=== PATIENT | female | born 1995 | race Caucasian/White ===

== ENCOUNTER 2017-04-13 18:25 | Inpatient (IN) | payer MEDICAID ==
[~2017-04-13] VITALS: Ht 152.4 cm; Wt 55.1 kg
[2017-04-13] MEDS ORDERED: ACETAMINOPHEN 500 MG TAB PO STA (19:37)
[2017-04-13] MEDS ORDERED: morphine 4 MG/ML VIAL IV STA (19:37)
[2017-04-13] MEDS ORDERED: SOD CHLORIDE 0.9% 1,000 ML IV STA (19:37)
[2017-04-13] MEDS ORDERED: ONDANSETRON 4 MG INJ IV STA (19:48)
[2017-04-13 20:13] LABS: URINE BLOOD (Dip) POC 2+ (NEGATIVE)
[2017-04-13 20:20] LABS: BASOPHILS % 0.2 % (0.0-2.0); EOSINOPHILS % 0.1 % (0.0-7.0); HEMATOCRIT 37.9 % (37.0-47.0); HEMOGLOBIN 13.4 g/dl (12.0-16.0); LYMPHOCYTES # 0.8 10^3/ul (0.8-2.9); LYMPHOCYTES % 4.8 % (15.0-51.0); MEAN CORPUSCULAR HEMOGLOBIN 30.6 pg (29.0-33.0); MEAN CORPUSCULAR HGB CONC 35.4 g/dl (32.0-37.0); MEAN CORPUSCULAR VOLUME 86.5 fl (82.0-101.0); MEAN PLATELET VOLUME 9.2 fl (7.4-10.4); MONOCYTE # 1.2 10^3/ul (0.3-0.9); MONOCYTES % 6.9 % (0.0-11.0); NEUTROPHIL # 14.6 10^3/ul (1.6-7.5); NEUTROPHILS % 87.6 % (39.0-77.0); PLATELET COUNT 276 10^3/UL (140-415); RED BLOOD COUNT 4.38 10^6/ul (4.20-5.40); RED CELL DISTRIBUTION WIDTH 11.8 % (11.5-14.5); WHITE BLOOD COUNT 16.7 10^3/ul (4.8-10.8)
[2017-04-13 20:39] LABS: INR 0.97
[2017-04-13 20:40] LABS: PARTIAL THROMBOPLASTIN TIME 28.1 Sec (25.0-35.0)
[2017-04-13 20:44] LABS: ANION GAP 16 (8-16); BLOOD UREA NITROGEN 15 mg/dl (7-20); CALCIUM 9.5 mg/dl (8.4-10.2); CARBON DIOXIDE 25 mmol/L (21-31); CHLORIDE 101 mmol/L (97-110); CREATININE 0.66 mg/dl (0.44-1.00); GLUCOSE 118 mg/dl (70-220); POTASSIUM 3.2 mmol/L (3.5-5.1); SODIUM 139 mmol/L (135-144)
--- NOTE | 2017-04-13 20:56 | RADRPT ---
PROCEDURE: Noncontrast CT Head. CLINICAL INDICATION: Headache TECHNIQUE: Noncontrast CT of the head was obtained. The administered radiation dose was CTDI vol = 45.01 mGy, DLP = 720.23 mGy-cm. One or more of the following dose reduction techniques were used: Au tomated exposure control, Adjustment of the mA and/or kV according to patient size, or Use of iterat dilan reconstruction technique. COMPARISON: There are no similar studies submitted for comparison. FINDINGS: There is no acute intracranial hemorrhage, midline shift, or mass effect. The cerebral altamirano-white ma tter differentiation appears preserved. No extra-axial collection is seen. The cerebral sulci and ve ntricles are within normal limits in size and configuration for patient's age. The cerebral attenuat ion is within normal limits. The basal cisterns are preserved. The posterior fossa structures are gr ossly unremarkable, although suboptimally evaluated with CT secondary to beam-hardening artifact. Th e partially imaged orbits are grossly unremarkable. Polypoid mucosal thickening or retention cyst is partially imaged within the left maxillary sinus. The remainder of the visualized paranasal sinuses and mastoid air cells are clear. No acute calvarial fracture is identified. IMPRESSION: 1. No evidence of an acute intracranial process. Unremarkable noncontrast CT appearance of the brain . 2. Polypoid mucosal thickening or retention cyst, partially imaged within the left maxillary sinus. RPTAT: HRC Physician Anuradha Date Time Electronically viewed and signed by Physician Anuradha on 04/13/2017 20:56 RC/
[2017-04-13 20:59] LABS: TROPONIN-I < 0.012 ng/ml (0.00-0.12)
[2017-04-13 21:01] LABS: ADD UMIC YES; UR ASCORBIC ACID NEGATIVE (NEGATIVE); UR BACTERIA FEW /HPF (NONE SEEN); UR BILIRUBIN (Dip) NEGATIVE (NEGATIVE); UR BLOOD (Dip) 2+ mg/dL (NEGATIVE); UR CLARITY CLEAR (CLEAR); UR COLOR YELLOW (YELLOW); UR GLUCOSE (Dip) NEGATIVE (NEGATIVE); UR KETONES (Dip) NEGATIVE (NEGATIVE); UR LEUKOCYTE ESTERASE (Dip) NEGATIVE Leu/ul (NEGATIVE); UR NITRITE (Dip) NEGATIVE (NEGATIVE); UR RBC 2 /HPF (0-5); UR SPECIFIC GRAVITY (Dip) 1.015 (1.003-1.030); UR SQUAMOUS EPITHELIAL CELL FEW /HPF (FEW); UR TOTAL PROTEIN (Dip) NEGATIVE (NEGATIVE); UR UROBILINOGEN (Dip) NEGATIVE (NEGATIVE)
[2017-04-13] MEDS ORDERED: POTASSIUM CHLORIDE (SR) 20 MEQ TAB PO STA (23:23)
[2017-04-13] MEDS ORDERED: SOD CHLORIDE 0.9% 1,000 ML IV ONE (23:30)
--- NOTE | 2017-04-13 23:57 | RADRPT ---
PROCEDURE: XR Chest. CLINICAL INDICATION: Fever of unknown origin. TECHNIQUE: AP view of the chest was obtained. COMPARISON: None available FINDINGS: The cardiomediastinal silhouette is within normal limits. The lungs are clear. No signs of pleural f luid or pneumothorax are seen. The osseous structures and soft tissues are unremarkable. IMPRESSION: 1. No evidence for active cardiopulmonary disease. RPTAT: HGAS .Laz Rogers MD, MD Date Time Electronically viewed and signed by .Laz Rogers MD, MD on 04/13/2017 23:56 .S/
[2017-04-14] VITALS (8 sets, daily range): BP systolic 96–128; BP diastolic 55–78; PULSE 98–123; RESP 16–19; TEMP 103.3; Ht 152.4 cm; Wt 55.1 kg
[2017-04-14 01:35] LABS: GLUCOSE,CSF 72 mg/dl (50-80)
[2017-04-14 01:51] LABS: CSF COLOR COLORLESS; CSF VOLUME 3.4 ml; CSF#TUBE COUNT TUBE#4; CSF#TUBES REC'D 4
[2017-04-14] MEDS ORDERED: CEFTRIAXONE 2 GM/50 ML (PMX) 50 ML IVPB ONE (02:30)
--- NOTE | 2017-04-14 03:44 | ERD ---
ER Documentation Chief Complaint Chief Complaint headache x 1 day HPI The patient is a 21-year-old female, presenting to the ER because of fever, headache and neck pain for 1 day. She denies syncope, near syncope, nasal congestion, nasal discharge, sore throat, cough, neck pain, chest pain or abdominal pain, vomiting, dysuria, diarrhea. She does not smoke or drink Past medical history/surgical history: None ROS All systems reviewed and are negative except as per history of present illness. Medications Home Meds No Active Prescriptions or Reported Meds Allergies Allergies: Coded Allergies: No Known Allergy (Unverified , 12/18/15) PMhx/Soc History of Surgery: Yes (APPENDECTOMY) Anesthesia Reaction: No Hx Neurological Disorder: No Hx Respiratory Disorders: No Hx Cardiac Disorders: No Hx Psychiatric Problems: No Hx Miscellaneous Medical Probl: No Hx Alcohol Use: Yes (2 drinks a week.) Hx Substance Use: No Hx Tobacco Use: No Smoking Status: Never smoker Physical Exam Vitals Vital Signs Date Time Temp Pulse Resp B/P Pulse Ox O2 Delivery O2 Flow Rate FiO2 04/13/17 23:24 98.6 76 17 94/53 98 Room Air 04/13/17 18:29 102.9 133 20 113/69 100 Physical Exam Const: No acute distress. Dehydrated Head: Atraumatic. Eyes: Normal Conjunctiva. ENT: Normal External Ears, Nose and Mouth. Neck: Full range of motion. No meningismus. Resp: Clear to auscultation bilaterally. Cardio: Regular rate and rhythm. Abd: Soft, non distended, normal bowel sounds, non tender. Skin: No petechiae or rashes. Back: No midline or flank tenderness. Ext: No cyanosis, or edema. Neur: Awake and alert. No focal deficit Psych: Normal Mood and Affect. Result Diagram: 04/13/17195404/13/171954 Results 24 hrs Laboratory Tests Test 04/13/17 19:55 04/13/17 20:05 04/13/17 20:13 04/13/17 22:01 White Blood Count 16.710^3/ul Red Blood Count 4.3810^6/ul Hemoglobin 13.4g/dl Hematocrit 37.9% Mean Corpuscular Volume 86.5fl Mean Corpuscular Hemoglobin 30.6pg Mean Corpuscular Hemoglobin Concent 35.4g/dl Red Cell Distribution Width 11.8% Platelet Count 27857^3/UL Mean Platelet Volume 9.2fl Neutrophils % 87.6% Lymphocytes % 4.8% Monocytes % 6.9% Eosinophils % 0.1% Basophils % 0.2% Nucleated Red Blood Cells % 0.0/100WBC Neutrophils # 14.610^3/ul Lymphocytes # 0.810^3/ul Monocytes # 1.210^3/ul Eosinophils # 0.010^3/ul Basophils # 0.010^3/ul Nucleated Red Blood Cells # 0.010^3/ul Prothrombin Time 13.0Sec Prothrombin Time Ratio 1.0 INR International Normalized Ratio 0.97 Activated Partial Thromboplast Time 28.1Sec Sodium Level 139mmol/L Potassium Level 3.2mmol/L Chloride Level 101mmol/L Carbon Dioxide Level 25mmol/L Anion Gap 16 Blood Urea Nitrogen 15mg/dl Creatinine 0.66mg/dl Glucose Level 118mg/dl Lactic Acid Level 1.4mmol/L 1.2mmol/L Calcium Level 9.5mg/dl Troponin I < 0.012ng/ml Serum HCG, Qualitative NEGATIVE Urine Color YELLOW Urine Clarity CLEAR Urine pH 6.0 Urine Specific [place] 1.015 Urine Ketones NEGATIVEmg/dL Urine Nitrite NEGATIVEmg/dL Urine Bilirubin NEGATIVEmg/dL Urine Urobilinogen NEGATIVEmg/dL Urine Leukocyte Esterase NEGATIVELeu/ul Urine Microscopic RBC 2/HPF Urine Microscopic WBC 4/HPF Urine Squamous Epithelial Cells FEW/HPF Urine Bacteria FEW/HPF Urine Hemoglobin 2+mg/dL Urine Glucose NEGATIVEmg/dL Urine Total Protein NEGATIVEmg/dl Bedside Urine pH (LAB) 6.0 Bedside Urine Protein (LAB) Negative Bedside Urine Glucose (UA) Negative Bedside Urine Ketones (LAB) Negative Bedside Urine Blood 2+ Bedside Urine Nitrite (LAB) Negative Bedside Urine Leukocyte Esterase (L Negative Test 04/14/17 00:04 04/14/17 00:50 Lactic Acid Level 1.5mmol/L CSF Tubes Submitted 4 CSF Volume 3.4ml CSF Appearance CLEAR CSF Color COLORLESS CSF WBC 6/cmm CSF RBC 0/uL CSF Cell Count Tube # TUBE#4 CSF Mononuclear Cells % (Auto) 0.0% CSF Polynuclear WBCs (%) 0.0% CSF Glucose 72mg/dl CSF Total Protein 25mg/dl Current Medications Medications (Trade) Dose Ordered Sig/Josef Route PRN Reason Start Time Stop Time Status Last Admin Dose Admin Sodium Chloride (NS) 1,000 ml @ 1,000 mls/hr Q1H STAT IV 04/13/17 19:37 04/13/17 20:36 DC 04/13/17 20:21 Acetaminophen (Tylenol Tab) 1,000 mg ONCE STAT PO 04/13/17 19:37 04/13/17 19:45 DC 04/13/17 20:19 Morphine Sulfate (morphine) 4 mg ONCE STAT IV 04/13/17 19:37 04/13/17 19:45 DC 04/13/17 20:20 Ondansetron HCl 4 mg 4 mg ONCE STAT IV 04/13/17 19:48 04/13/17 19:49 DC 04/13/17 20:19 Sodium Chloride (NS) 1,000 ml @ 1,000 mls/hr Q1H ONCE IV 04/13/17 23:30 04/14/17 00:29 DC 04/13/17 23:32 Potassium Chloride 40 meq 40 meq ONCE STAT PO 04/13/17 23:23 04/13/17 23:26 DC 04/13/17 23:33 Ceftriaxone Sodium (Rocephin) 50 ml @ 100 mls/hr ONCE ONCE IVPB 04/14/17 02:30 04/14/17 02:59 DC Procedures/[place] [address] Radiology Main Line: [phone] DIAGNOSTIC IMAGING REPORT Patient: BLANCO REYNOSO : 1995 Age: 21 Sex: F MR #: [id number] DOS: 04/13/171936 Ordering MD: LÓPEZ TRAYLOR NP Location: [facility] Room/Bed: PROCEDURE: Noncontrast CT Head. CLINICAL INDICATION: Headache TECHNIQUE: Noncontrast CT of the head was obtained. The administered radiation dose was CTDI vol = 45.01 mGy, DLP = 720.23 mGy-cm. One or more of the following dose reduction techniques were used: Automated exposure control, Adjustment of the mA and/or kV according to patient size, or Use of iterative reconstruction technique. COMPARISON: There are no similar studies submitted for comparison. FINDINGS: There is no acute intracranial hemorrhage, midline shift, or mass effect. The cerebral altamirano-white matter differentiation appears preserved. No extra-axial collection is seen. The cerebral sulci and ventricles are within normal limits in size and configuration for patient's age. The cerebral attenuation is within normal limits. The basal cisterns are preserved. The posterior fossa structures are grossly unremarkable, although suboptimally evaluated with CT secondary to beam-hardening artifact. The partially imaged orbits are grossly unremarkable. Polypoid mucosal thickening or retention cyst is partially imaged within the left maxillary sinus. The remainder of the visualized paranasal sinuses and mastoid air cells are clear. No acute calvarial fracture is identified. IMPRESSION: 1. No evidence of an acute intracranial process. Unremarkable noncontrast CT appearance of the brain. 2. Polypoid mucosal thickening or retention cyst, partially imaged within the left maxillary sinus. RPTAT: HRC Physician Anuradha Date Time Electronically viewed and signed by Miles Feliciano Physician on 04/13/2017 20: 56 RC/ CC: LÓPEZ ROBERT NP [place] [address] Radiology Main Line: [phone] DIAGNOSTIC IMAGING REPORT Patient: BLANCO REYNOSO : 1995 Age: 21 Sex: F MR #: [id number] DOS: 04/13/17 2323 Ordering MD: LÓPEZ TRAYLOR NP Location: E/R Room/Bed: PROCEDURE: XR Chest. CLINICAL INDICATION: Fever of unknown origin. TECHNIQUE: AP view of the chest was obtained. COMPARISON: None available FINDINGS: The cardiomediastinal silhouette is within normal limits. The lungs are clear. No signs of pleural fluid or pneumothorax are seen. The osseous structures and soft tissues are unremarkable. IMPRESSION: 1. No evidence for active cardiopulmonary disease. RPTAT: HGAS .Laz Rogers MD, Date Time Electronically viewed and signed by .Laz Rogers MD, on 04/13/2017 23: 56 .S/ CC: LÓPEZ ROBERT NP MEDICAL MAKING DECISION: The patient is a 21-year-old female, venting with acute febrile illness of unclear etiology, SIRS, acute cephalgia, acute hypokalemia, acute dehydration. He was treated with 2 L normal saline for acute dehydration, Tylenol 1 g p.o. for fever, and 4 mg IV for pain and Zofran 4 mg IV for nausea, potassium chloride 40 mg p.o. for acute hypokalemia, Rocephin 2 g IV empirically. She feel better after the aforementioned treatment The differential diagnoses considered include but are not limited to subarachnoid hemorrhage, occult trauma, CVA, viral meningitis, bacterial meningitis, encephalitis, hypertension, tension, migraine, cluster, narcotic withdrawal, cervical spine disease. Lumbar Puncture by me: Patient consented, time out performed, sterilely prepped/draped, anesthetized locally. Anesthesia: 1% lidocaine locally Location: One interspace below the iliac crest Technique: 20 gauge needle with stylet for entry and removal of needle Results: Clear CSF fluid No post procedure complications, bleeding, numbness or weakness. Departure Diagnosis: Primary Impression: Acute febrile illness Additional Impressions: SIRS (systemic inflammatory response syndrome) Hypokalemia Cephalgia Dehydration Condition: Stable Comments I discussed the findings with the patient. I discussed the patient with the on- call hospitalist Dr. Huang at 2:10 AM who was made aware of the lab, the treatment, the patient condition. The patient is admitted to [facility] Disclaimer: Inadvertent spelling and grammatical errors are likely due to EHR/ dictation software use and do not reflect on the overall quality of patient care. Also, please note that the electronic time recorded on this note does not necessarily reflect the actual time of the patient encounter. ANDRIA GAMEZ MD Apr 14, 2017 03:44
[2017-04-14] MEDS: SOD CHLORIDE 0.9% 1,000 ML IV SCH ×2 (03:52→13:40)
[2017-04-14] MEDS ORDERED: VANCOMYCIN IV PER PHARMACY XX SCH ×2 (04:00→05:30)
[2017-04-14] MEDS ORDERED: ALBUTEROL/IPRATROPIUM (NEB) 3 ML AMP HHN PRN (04:00)
[2017-04-14] MEDS ORDERED: NACL 0.9% 3 ML SYG IV SCH (04:00)
[2017-04-14] MEDS: ACETAMINOPHEN 325 MG TAB PO PRN ×4 (04:20→19:11)
[2017-04-14] MEDS ORDERED: VANCOMYCIN 1 GM in NS 250 ML IVPB ONE (05:00)
[2017-04-14 07:23] LABS: BASOPHILS % 0.1 % (0.0-2.0); EOSINOPHILS % 0.1 % (0.0-7.0); HEMATOCRIT 32.4 % (37.0-47.0); LYMPHOCYTES # 0.9 10^3/ul (0.8-2.9); LYMPHOCYTES % 5.5 % (15.0-51.0); MEAN CORPUSCULAR HEMOGLOBIN 30.1 pg (29.0-33.0); MEAN CORPUSCULAR VOLUME 88.5 fl (82.0-101.0); MEAN PLATELET VOLUME 9.6 fl (7.4-10.4); MONOCYTE # 0.6 10^3/ul (0.3-0.9); MONOCYTES % 3.5 % (0.0-11.0); NEUTROPHIL # 14.2 10^3/ul (1.6-7.5); NEUTROPHILS % 90.2 % (39.0-77.0); PLATELET COUNT 229 10^3/UL (140-415); RED BLOOD COUNT 3.66 10^6/ul (4.20-5.40); RED CELL DISTRIBUTION WIDTH 11.9 % (11.5-14.5); WHITE BLOOD COUNT 15.8 10^3/ul (4.8-10.8)
--- NOTE | 2017-04-14 07:50 | HP ---
Date/Time of Note Date/Time of Note DATE: 04/14/17 TIME: 07:36 Assessment/Plan VTE Prophylaxis VTE Prophylaxis Intervention: heparin Lines/Catheters IV Catheter Type (from [facility]): Peripheral IV Assessment/Plan Assessment/Plan ASSESSMENT 21-year-old female with no significant past medical history who presented with diffuse headache and fever appears to be septic so far with no identifiable source PLAN -so far chest x-ray and a urinalysis, influenza A&B have been negative. CSF fluid analysis. Head CT with no intracranial abnormality but with some abnormality of the sinus even though not diagnostic for sinusitis. -Plan is for broad-spectrum antibiotic, IV fluid, Acyclovir. Follow-up blood culture and urine culture results. check for HIV -will place an ID consult -consider MRI of brain HPI/ROS Admit Date/Time Admit Date/Time Apr 14, 2017 at 02:15 Hx of Present Illness This is a 21-year-old female with no significant past medical history who presents to the ER complaining of headache and fever 1 day. Headache is diffuse. She also reported minimal pain on the back of her neck but denied neck stiffness. Denied blurry vision, nausea/vomiting, focal weakness/numbness , diarrhea, chest pain or shortness of breath. She also denied urinary symptoms , abdominal pain or flank pain. When she presented to the ER, she was febrile with a temperature of almost 102.9 , heart rate in the 133. Lab shows a WBC of almost 17,000 and potassium 3.2 otherwise basic labs were within acceptable range. Head CT showed polypoid mucosal thickening or retention cyst, partially imaged within the left maxillary sinus otherwise no acute findings. UA not consistent with UTI and chest x-ray with no active cardiopulmonary disease. A lumbar puncture was done and the CSF fluid analysis not consistent with meningitis. She was given IV fluid and Rocephin was initial resolution of tachycardia and fever. However patient again became febrile with a temperature of 103 and tachycardic. PMH/Family/Social Social History Smoking Status: Never smoker Exam/Review of Systems Vital Signs Vitals Vital Signs Date Time Temp Pulse Resp B/P Pulse Ox O2 Delivery O2 Flow Rate FiO2 04/14/17 05:55 103.0 115 19 96/55 96 04/14/17 04:10 Room Air Intake and Output 04/13/17 04/13/17 04/14/17 14:59 22:59 06:59 Intake Total 1000 ml 480 ml Balance 1000 ml 480 ml Exam Constitutional: alert, oriented, other (In mild distress due to headache) Head: atraumatic, normocephalic Eyes: EOMI, PERRL Respiratory: clear to auscultation, normal air movement Cardiovascular: other (Tachycardic with regular rhythm) Gastrointestinal: non-tender, soft Extremities: normal pulses Labs Result Diagram: 04/13/17195404/13/171954 Medications Medications Current Medications Sodium Chloride (NS) 1,000 ml @ 100 mls/hr Q10H IV Last administered on 03:52; Admin Dose 100 MLS/HR; Start 04/14/17 at 03:40; Stop 04/15/17 at 16 :00 Ondansetron HCl (Zofran Inj) 4 mg Q6H PRN IV NAUSEA AND/OR VOMITING; Start 04/14/17 at 04:00 Acetaminophen (Tylenol Tab) 650 mg Q6H PRN PO PAIN LEVEL 1-3 OR FEVER Last administered on 04/14/17 04:20; Admin Dose 650 MG; Start 04/14/17 at 04:00 Morphine Sulfate 2 mg 2 mg Q4H PRN IV SEVERE PAIN LEVEL 7-10; Start 04/14/17 at 04:00 Ceftriaxone Sodium 50 ml @ 100 mls/hr Q24H IVPB ; Start 04/15/17 at 04:00 Vancomycin HCl/ Sodium Chloride (Vancocin/NS) 250 ml @ 125 mls/hr Q8H IVPB ; Start 04/14/17 at 13:00 SUKHDEV BARAJAS MD Apr 14, 2017 07:49 SUKHDEV BARAJAS MD Apr 14, 2017 07:49
[2017-04-14] MEDS: morphine 2 MG INJ IV PRN ×2 (07:59→19:08)
[2017-04-14] MEDS ORDERED: SOD CHLORIDE 0.9% 1,000 ML IV ONE (08:00)
[2017-04-14 08:03] LABS: ALBUMIN 3.4 g/dl (3.3-4.9); ALBUMIN/GLOBULIN RATIO 1.03; BILIRUBIN,INDIRECT 0.4 mg/dl (0-1.1); BILIRUBIN,TOTAL 0.4 mg/dl (0.2-1.3); CALCIUM 8.5 mg/dl (8.4-10.2); CREATININE 0.69 mg/dl (0.44-1.00); MAGNESIUM 1.8 mg/dl (1.7-2.5); PHOSPHORUS 2.1 mg/dl (2.5-4.9); POTASSIUM 3.4 mmol/L (3.5-5.1); TOTAL PROTEIN 6.7 g/dl (6.1-8.1)
[2017-04-14] MEDS ORDERED: POTASSIUM CHLORIDE (SR) 20 MEQ TAB PO STA (09:30)
[2017-04-14] MEDS: ACYCLOVIR 500 MG in DEXTROSE 5% 100 ML IVPB SCH ×3 (10:08→22:41)
[2017-04-14] MEDS ORDERED: KETOROLAC 15 MG INJ IV PRN (10:30)
[2017-04-14] MEDS: VANCOMYCIN 1 GM in NS 250 ML IVPB SCH ×2 (12:35→20:31)
[2017-04-14] MEDS ORDERED: VANCOMYCIN 850 MG in SOD CHLORIDE 0.9% 250 ML IVPB SCH (13:00)
[2017-04-14] MEDS ORDERED: POTASSIUM PHOSPHATE 20 MEQ in SOD CHLORIDE 0.9% 250 ML IVPB ONE (14:30)
--- NOTE | 2017-04-14 16:20 | CONS ---
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 Sepulveda is likely viral meningitis which is self-limiting * Chest x-ray: No evidence of cardiopulmonary disease. CT scan of the brain: No evidence for any acute intracranial process. * Group A strep, Rapid Strep test was negative. EXAM GENERAL: VSS, NAD HEENT: Unremarkable NECK: Supple, full ROM CHEST: Rise symmetrical, without dyspnea on observation ABDOMEN: Soft, NT EXTREMITIES: Warm SKIN: No diaphoresis, no rash ID ASSESSMENT: 21 yo F admit with: 1. SIRS w/ fevers, tachycardia, leukocytosis => headaches 2. Aseptic meningitis => Likely viral etiology per Dr. Sepulveda * LP: (+) 6 white cells, glucose of 72, protein of 25, consistent with an aseptic meningitis. * Swabs for influenza A and B were negative. * Group A strep, Rapid Strep test was negative. 3. Head CT showed polypoid mucosal thickening or retention cyst, partially imaged within the left maxillary sinus otherwise no acute findings INVASIVES: PIV ABX ALLERGY: KNDA CURRENT ABX=>=> Vanco IV + Ceftriaxone + Acyclovir ID PLAN 1. Continue current ABX, await other CSF results if sent ? HSV ? 2. Advised patient/partner that she can anticipate DC home OFF ABX once final CSF cx reports (-); afebrile x >24H. * They ask me if it is OK for her to go home and take care of her son -- I explained to them son was likely already exposed to same virus, once fevers resolve she will not be contagious. . . . Problems: Consultation Date/Type/Reason Admit Date/Time Apr 14, 2017 at 02:15 Initial Consult Date Exam/Review of Systems Vital Signs Vitals Vital Signs Date Time Temp Pulse Resp B/P Pulse Ox O2 Delivery O2 Flow Rate FiO2 04/14/17 14:46 103.0 108 18 118/58 100 04/14/17 04:10 Room Air Intake and Output 04/13/17 04/13/17 04/14/17 15:00 23:00 07:00 Intake Total 1000 ml 480 ml Balance 1000 ml 480 ml Results Result Diagram: 04/14/17 0647 04/14/17 0647 Results 24 hrs Laboratory Tests Test 04/13/17 19:55 04/13/17 20:05 04/13/17 20:13 04/13/17 22:01 White Blood Count 16.7 #H Red Blood Count 4.38 # Hemoglobin 13.4 # Hematocrit 37.9 Mean Corpuscular Volume 86.5 Mean Corpuscular Hemoglobin 30.6 Mean Corpuscular Hemoglobin Concent 35.4 Red Cell Distribution Width 11.8 Platelet Count 276 Mean Platelet Volume 9.2 Neutrophils % 87.6 H Lymphocytes % 4.8 L Monocytes % 6.9 Eosinophils % 0.1 Basophils % 0.2 Nucleated Red Blood Cells % 0.0 Neutrophils # 14.6 H Lymphocytes # 0.8 Monocytes # 1.2 H Eosinophils # 0.0 Basophils # 0.0 Nucleated Red Blood Cells # 0.0 Prothrombin Time 13.0 Prothrombin Time Ratio 1.0 INR International Normalized Ratio 0.97 Activated Partial Thromboplast Time 28.1 Sodium Level 139 Potassium Level 3.2 L Chloride Level 101 Carbon Dioxide Level 25 Anion Gap 16 Blood Urea Nitrogen 15 Creatinine 0.66 Glucose Level 118 Lactic Acid Level 1.4 1.2 Calcium Level 9.5 Troponin I < 0.012 Serum HCG, Qualitative NEGATIVE Urine Color YELLOW Urine Clarity CLEAR Urine pH 6.0 Urine Specific [place] 1.015 Urine Ketones NEGATIVE Urine Nitrite NEGATIVE Urine Bilirubin NEGATIVE Urine Urobilinogen NEGATIVE Urine Leukocyte Esterase NEGATIVE Urine Microscopic RBC 2 Urine Microscopic WBC 4 Urine Squamous Epithelial Cells FEW Urine Bacteria FEW A Urine Hemoglobin 2+ H Urine Glucose NEGATIVE Urine Total Protein NEGATIVE Bedside Urine pH (LAB) 6.0 Bedside Urine Protein (LAB) Negative Bedside Urine Glucose (UA) Negative Bedside Urine Ketones (LAB) Negative Bedside Urine Blood 2+ H Bedside Urine Nitrite (LAB) Negative Bedside Urine Leukocyte Esterase (L Negative Test 04/14/17 00:04 04/14/17 00:50 04/14/17 06:47 04/14/17 09:36 Lactic Acid Level 1.5 CSF Tubes Submitted 4 CSF Volume 3.4 CSF Appearance CLEAR CSF Color COLORLESS CSF WBC 6 CSF RBC 0 CSF Cell Count Tube # TUBE#4 CSF Mononuclear Cells % (Auto) 0.0 CSF Polynuclear WBCs (%) 0.0 CSF Glucose 72 CSF Total Protein 25 White Blood Count 15.8 H Red Blood Count 3.66 L Hemoglobin 11.0 L Hematocrit 32.4 L Mean Corpuscular Volume 88.5 Mean Corpuscular Hemoglobin 30.1 Mean Corpuscular Hemoglobin Concent 34.0 Red Cell Distribution Width 11.9 Platelet Count 229 Mean Platelet Volume 9.6 Neutrophils % 90.2 H Lymphocytes % 5.5 L Monocytes % 3.5 Eosinophils % 0.1 Basophils % 0.1 Nucleated Red Blood Cells % 0.0 Neutrophils # 14.2 H Lymphocytes # 0.9 Monocytes # 0.6 Eosinophils # 0.0 Basophils # 0.0 Nucleated Red Blood Cells # 0.0 Sodium Level 141 Potassium Level 3.4 L Chloride Level 107 Carbon Dioxide Level 25 Anion Gap 12 Blood Urea Nitrogen 8 Creatinine 0.69 Glucose Level 138 Calcium Level 8.5 Phosphorus Level 2.1 L Magnesium Level 1.8 Total Bilirubin 0.4 Direct Bilirubin 0.00 Indirect Bilirubin 0.4 Aspartate Amino Transf (AST/SGOT) 17 Alanine Aminotransferase (ALT/SGPT) 30 Alkaline Phosphatase 71 Total Protein 6.7 Albumin 3.4 Globulin 3.30 H Albumin/Globulin Ratio 1.03 HIV (1&2) Antibody NEGATIVE Medications Medications Current Medications Sodium Chloride (NS) 1,000 ml @ 100 mls/hr Q10H IV Last administered on 03:52; Admin Dose 100 MLS/HR; Start 04/14/17 at 03:40; Stop 04/15/17 at 16 :00 Ondansetron HCl (Zofran Inj) 4 mg Q6H PRN IV NAUSEA AND/OR VOMITING; Start 04/14/17 at 04:00 Morphine Sulfate 2 mg 2 mg Q4H PRN IV SEVERE PAIN LEVEL 7-10 Last administered on 04/14/17 07:59; Admin Dose 2 MG; Start 04/14/17 at 04:00 Ceftriaxone Sodium 50 ml @ 100 mls/hr Q24H IVPB ; Start 04/15/17 at 04:00 Acyclovir/Dextrose (Zovirax/D5W) 100 ml @ 100 mls/hr Q8 IVPB Last administered on 04/14/17 15:35; Admin Dose 100 MLS/HR; Start 04/14/17 at 09:00 Ketorolac Tromethamine (Toradol) 15 mg Q6H PRN IV PAIN; Start 04/14/17 at 10:30 ; Stop 04/17/17 at 10:29 Acetaminophen 650 mg 650 mg Q4H PRN PO PAIN LEVEL 1-3 OR FEVER Last administered on 04/14/17 14:53; Admin Dose 650 MG; Start 04/14/17 at 11:00 Vancomycin HCl (Vancocin) 250 ml @ 125 mls/hr Q8H IVPB Last administered on 12:35; Admin Dose 125 MLS/HR; Start 04/14/17 at 12:00 Miscellaneous Information VANCOMYCIN TROUGH ON @ .. ONCE ONCE XX ; Start 04/15/17 at 11:00; Stop 04/15/17 at 11:01 Potassium Phosphate/Sodium Chloride (K Phos (Meq)/NS) 254.5455 ml @ 63.636 m... ONCE ONCE IVPB Last administered on 04/14/17 15:54; Admin Dose 63.636 MLS/HR; Start 04/14/17 at 14:30; Stop 04/14/17 at 18:29 TUTU WYMAN NP Apr 14, 2017 16:20
--- NOTE | 2017-04-14 16:42 | CONS ---
DATE OF ADMISSION: 04/14/2017 DATE OF CONSULTATION: 04/14/2017 TYPE OF CONSULTATION: Infectious Disease. REASON FOR CONSULTATION: Antibiotic management. HISTORY OF PRESENT ILLNESS: Kimberly Dietrich is a 21-year-old female in generally good health who present s with diffuse headaches and fever of 1-day duration. The headache is diffuse. She reports minimal pain in the back of her neck and denies neck stiffness. She has not had blurred vision, nausea, vo miting, any weakness or numbness, no shortness of breath. In the ER, she was febrile to 102.9. Her white count was 16.7, H and H of 13.4 and 37.9, platelet count of 276, BUN and creatinine 15/0.66, glucose 188. She had an LP which showed only 6 white cells, glucose of 72, protein of 25, consisten t with an aseptic meningitis. Swabs for influenza A and B were negative. Group A strep, Rapid Stre p test was negative. Chest x-ray: No evidence of cardiopulmonary disease. CT scan of the brain: No evidence for any acute intracranial process. PAST MEDICAL HISTORY: Operations as outlined. FAMILY HISTORY: Noncontributory. SOCIAL HISTORY: She does not smoke, drink or abuse drugs. ALLERGIES: NONE TO PENICILLIN, SULFA OR FOODS. MEDICATIONS: Per chart. REVIEW OF SYSTEMS: Noncontributory. PHYSICAL EXAMINATION: GENERAL: The patient is a well-developed, well-nourished female who is alert, responsive, in no acu te distress. VITAL SIGNS: Stable. Her T-max is 103 degrees. SKIN: Without generalized rash. HEENT: Within normal limits. NECK: Supple. LYMPH NODES: None palpable. CHEST: Decreased breath sounds at the bases. HEART: Without murmur or gallop. ABDOMEN: Soft, nontender, without organosplenomegaly or masses. EXTREMITIES: Without cyanosis, clubbing, or edema. RECTAL AND GENITAL: Deferred. NEUROLOGIC: No focal neurological abnormalities. IMPRESSION AND PLAN: The patient presents now with an aseptic meningitis, most likely viral in etio logy. She is on vancomycin and ceftriaxone until cultures come back. She was also given Rocephin i nitially in the emergency room and she is on Rocephin and vancomycin now. I will dictate my finding s to the hospitalist. Dictated By: MURALI BAEZ MD, JD/TAURUS Conf#: [id number] DID#: [id number] CC: SUKHDEV BARAJAS MD;*[facility]*
[2017-04-15] MEDS: SOD CHLORIDE 0.9% 1,000 ML IV SCH ×2 (02:42→12:58)
[2017-04-15] MEDS: ACETAMINOPHEN 325 MG TAB PO PRN (02:42)
[2017-04-15] MEDS: CEFTRIAXONE 2 GM/50 ML (PMX) 50 ML IVPB SCH (03:02)
[2017-04-15 03:51] VITALS: BP 104/55; RESP 19
[2017-04-15] MEDS: VANCOMYCIN 1 GM in NS 250 ML IVPB SCH ×2 (04:14→12:59)
[2017-04-15 05:57] LABS: BASOPHILS % 0.3 % (0.0-2.0); EOSINOPHILS # 0.2 10^3/ul (0.0-0.5); EOSINOPHILS % 1.4 % (0.0-7.0); HEMOGLOBIN 10.8 g/dl (12.0-16.0); LYMPHOCYTES # 1.6 10^3/ul (0.8-2.9); LYMPHOCYTES % 11.9 % (15.0-51.0); MEAN CORPUSCULAR HEMOGLOBIN 30.3 pg (29.0-33.0); MEAN CORPUSCULAR HGB CONC 33.8 g/dl (32.0-37.0); MEAN CORPUSCULAR VOLUME 89.9 fl (82.0-101.0); MEAN PLATELET VOLUME 10.1 fl (7.4-10.4); MONOCYTE # 0.7 10^3/ul (0.3-0.9); MONOCYTES % 5.6 % (0.0-11.0); NEUTROPHIL # 10.6 10^3/ul (1.6-7.5); NEUTROPHILS % 80.2 % (39.0-77.0); PLATELET COUNT 199 10^3/UL (140-415); RED BLOOD COUNT 3.56 10^6/ul (4.20-5.40); RED CELL DISTRIBUTION WIDTH 12.3 % (11.5-14.5); WHITE BLOOD COUNT 13.2 10^3/ul (4.8-10.8)
[2017-04-15] MEDS: ACYCLOVIR 500 MG in DEXTROSE 5% 100 ML IVPB SCH ×3 (06:29→23:37)
[2017-04-15 06:32] LABS: CALCIUM 8.7 mg/dl (8.4-10.2); CREATININE 0.51 mg/dl (0.44-1.00); MAGNESIUM 1.9 mg/dl (1.7-2.5); PHOSPHORUS 2.9 mg/dl (2.5-4.9); POTASSIUM 3.6 mmol/L (3.5-5.1)
[2017-04-15] MEDS: morphine 2 MG INJ IV PRN ×3 (07:58→20:31)
[2017-04-15 08:00] VITALS: BP 117/58; RESP 17
[2017-04-15 14:00] VITALS: BP 109/55; RESP 19
--- NOTE | 2017-04-15 17:49 | CONS ---
Date/Time of Note Date/Time of Note DATE: 04/15/17 TIME: 17:44 Assessment/Plan Assessment/Plan Chief Complaint/Hosp Course ID PROGRESS NOTE TOTAL ABX DAY #1 CURRENT ABX=> Vanco IV + Ceftriaxone + Acyclovir 04/15/17 0445 04/15/17 0445 24H INTERVAL SUMMARY * WBC down today, no fevers recorded * 04/14/17-0050 Source: CSF CULTURE * GRAM STAIN Final POLYMORPH. LEUKOCYTE NONE SEEN NO ORGANISM SEEN * CSF CULTURE Preliminary NO GROWTH AFTER 1 DAY * Chest x-ray: No evidence of cardiopulmonary disease. CT scan of the brain: No evidence for any acute intracranial process. * Group A strep, Rapid Strep test was negative. EXAM GENERAL: VSS, NAD HEENT: Unremarkable NECK: Supple, full ROM CHEST: Rise symmetrical, without dyspnea on observation ABDOMEN: Soft, NT EXTREMITIES: Warm SKIN: No diaphoresis, no rash ID ASSESSMENT: 21 yo F admit with: 1. SIRS w/ fevers, tachycardia, leukocytosis => headaches 2. Aseptic meningitis => Likely viral etiology per Dr. Sepulveda * LP: (+) 6 white cells, glucose of 72, protein of 25, consistent with an aseptic meningitis. * 04/14/17-49 Source: CSF CULTURE * GRAM STAIN Final POLYMORPH. LEUKOCYTE NONE SEEN NO ORGANISM SEEN * CSF CULTURE Preliminary NO GROWTH AFTER 1 DAY * Swabs for influenza A and B were negative. * Group A strep, Rapid Strep test was negative. 3. Head CT showed polypoid mucosal thickening or retention cyst, partially imaged within the left maxillary sinus otherwise no acute findings INVASIVES: PIV ABX ALLERGY: KNDA CURRENT ABX=>=> Vanco IV + Ceftriaxone + Acyclovir ID PLAN 1. Continue current ABX overnight 2. Advised patient/partner that she can anticipate DC home OFF ABX once final CSF cx reports (-); afebrile x >24H. . . Problems: Consultation Date/Type/Reason Admit Date/Time Apr 14, 2017 at 02:15 Exam/Review of Systems Vital Signs Vitals Vital Signs Date Time Temp Pulse Resp B/P Pulse Ox O2 Delivery O2 Flow Rate FiO2 04/15/17 08:00 98.5 81 17 117/58 99 04/14/17 17:01 Room Air Intake and Output 04/14/17 04/14/17 04/15/17 15:00 23:00 07:00 Intake Total 1350 ml 1904.5455 ml 1400 ml Balance 1350 ml 1904.5455 ml 1400 ml Results Result Diagram: 04/15/17 0445 04/15/175 Results 24 hrs Laboratory Tests Test 04/15/17 04:45 04/15/17 11:00 White Blood Count 13.2 H Red Blood Count 3.56 L Hemoglobin 10.8 L Hematocrit 32.0 L Mean Corpuscular Volume 89.9 Mean Corpuscular Hemoglobin 30.3 Mean Corpuscular Hemoglobin Concent 33.8 Red Cell Distribution Width 12.3 Platelet Count 199 Mean Platelet Volume 10.1 Neutrophils % 80.2 H Lymphocytes % 11.9 L Monocytes % 5.6 Eosinophils % 1.4 Basophils % 0.3 Nucleated Red Blood Cells % 0.0 Neutrophils # 10.6 H Lymphocytes # 1.6 Monocytes # 0.7 Eosinophils # 0.2 Basophils # 0.0 Nucleated Red Blood Cells # 0.0 Sodium Level 142 Potassium Level 3.6 Chloride Level 106 Carbon Dioxide Level 26 Anion Gap 14 Blood Urea Nitrogen 5 L Creatinine 0.51 Glucose Level 104 Calcium Level 8.7 Phosphorus Level 2.9 Magnesium Level 1.9 Vancomycin Level Trough 8.4 L Medications Medications Current Medications Ondansetron HCl (Zofran Inj) 4 mg Q6H PRN IV NAUSEA AND/OR VOMITING; Start 04/14/17 at 04:00 Morphine Sulfate 2 mg 2 mg Q4H PRN IV SEVERE PAIN LEVEL 7-10 Last administered on 04/15/17 14:57; Admin Dose 2 MG; Start 04/14/17 at 04:00 Ceftriaxone Sodium 50 ml @ 100 mls/hr Q24H IVPB Last administered on 03:02; Admin Dose 100 MLS/HR; Start 04/15/17 at 04:00 Acyclovir/Dextrose (Zovirax/D5W) 100 ml @ 100 mls/hr Q8 IVPB Last administered on 04/15/17 14:57; Admin Dose 100 MLS/HR; Start 04/14/17 at 09:00 Ketorolac Tromethamine (Toradol) 15 mg Q6H PRN IV PAIN; Start 04/14/17 at 10:30 ; Stop 04/17/17 at 10:29 Acetaminophen 650 mg 650 mg Q4H PRN PO PAIN LEVEL 1-3 OR FEVER Last administered on 04/15/17t 02:42; Admin Dose 650 MG; Start 04/14/17 at 11:00 Vancomycin HCl/ Sodium Chloride (Vancocin/NS) 250 ml @ 83.333 mls/ hr Q8H IVPB ; Start 04/15/17 at 20:00 TUTU WYMAN NP Apr 15, 2017 17:49
--- NOTE | 2017-04-15 19:17 | PN ---
Date/Time of Note Date/Time of Note DATE: 04/15/17 TIME: 19:14 Assessment/Plan VTE Prophylaxis VTE Prophylaxis Intervention: SCD's Lines/Catheters IV Catheter Type (from Nrs): Saline Lock Assessment/Plan Chief Complaint/Hosp Course 1. SIRS with headache likely secondary to aseptic meningitis Continue antibiotics antibiotics for now All cultures negative so far including CSF ID consultation appreciated Morphine for headache Patient continues to be febrile, anticipate DC home when no longer febrile and if CSF culture remains negative PPx: SCDs Problems: Subjective 24 Hr Interval Summary Neurologic: headache Exam/Review of Systems Vital Signs Vitals Vital Signs Date Time Temp Pulse Resp B/P Pulse Ox O2 Delivery O2 Flow Rate FiO2 04/15/17 14:00 99.1 90 19 109/55 100 04/14/17 17:01 Room Air Intake and Output 04/14/17 04/14/17 04/15/17 15:00 23:00 07:00 Intake Total 1350 ml 1904.5455 ml 1400 ml Balance 1350 ml 1904.5455 ml 1400 ml Exam Constitutional: alert Respiratory: clear to auscultation Cardiovascular: regular rate and rhythm Gastrointestinal: soft, No distended Musculoskeletal: nl extremities to inspection Results Result Diagram: 04/15/17 0445 04/15/17 0445 Results 24 hrs Laboratory Tests Test 04/15/17 04:45 04/15/17 11:00 White Blood Count 13.2 H Red Blood Count 3.56 L Hemoglobin 10.8 L Hematocrit 32.0 L Mean Corpuscular Volume 89.9 Mean Corpuscular Hemoglobin 30.3 Mean Corpuscular Hemoglobin Concent 33.8 Red Cell Distribution Width 12.3 Platelet Count 199 Mean Platelet Volume 10.1 Neutrophils % 80.2 H Lymphocytes % 11.9 L Monocytes % 5.6 Eosinophils % 1.4 Basophils % 0.3 Nucleated Red Blood Cells % 0.0 Neutrophils # 10.6 H Lymphocytes # 1.6 Monocytes # 0.7 Eosinophils # 0.2 Basophils # 0.0 Nucleated Red Blood Cells # 0.0 Sodium Level 142 Potassium Level 3.6 Chloride Level 106 Carbon Dioxide Level 26 Anion Gap 14 Blood Urea Nitrogen 5 L Creatinine 0.51 Glucose Level 104 Calcium Level 8.7 Phosphorus Level 2.9 Magnesium Level 1.9 Vancomycin Level Trough 8.4 L Medications Medications Current Medications Ondansetron HCl (Zofran Inj) 4 mg Q6H PRN IV NAUSEA AND/OR VOMITING; Start 04/14/17 at 04:00 Morphine Sulfate 2 mg 2 mg Q4H PRN IV SEVERE PAIN LEVEL 7-10 Last administered on 04/15/17 14:57; Admin Dose 2 MG; Start 04/14/17 at 04:00 Ceftriaxone Sodium 50 ml @ 100 mls/hr Q24H IVPB Last administered on 03:02; Admin Dose 100 MLS/HR; Start 04/15/17 at 04:00 Acyclovir/Dextrose (Zovirax/D5W) 100 ml @ 100 mls/hr Q8 IVPB Last administered on 04/15/17 14:57; Admin Dose 100 MLS/HR; Start 04/14/17 at 09:00 Ketorolac Tromethamine (Toradol) 15 mg Q6H PRN IV PAIN; Start 04/14/17 at 10:30 ; Stop 04/17/17 at 10:29 Acetaminophen 650 mg 650 mg Q4H PRN PO PAIN LEVEL 1-3 OR FEVER Last administered on 04/15/17 02:42; Admin Dose 650 MG; Start 04/14/17 at 11:00 Vancomycin HCl/ Sodium Chloride (Vancocin/NS) 250 ml @ 83.333 mls/ hr Q8H IVPB ; Start 04/15/17 at 20:00 VENKATESH MONTANO Apr 15, 2017 19:17
[2017-04-15 20:29] VITALS: BP 105/58; RESP 18
[2017-04-15] MEDS: ONDANSETRON 4 MG INJ IV PRN (20:31)
[2017-04-15] MEDS: VANCOMYCIN 1.25 GM in SOD CHLORIDE 0.9% 250 ML IVPB SCH (20:31)
[2017-04-16 02:47] VITALS: BP 96/52; RESP 20
[2017-04-16] MEDS: CEFTRIAXONE 2 GM/50 ML (PMX) 50 ML IVPB SCH (03:18)
[2017-04-16] MEDS: VANCOMYCIN 1.25 GM in SOD CHLORIDE 0.9% 250 ML IVPB SCH ×2 (04:36→12:51)
[2017-04-16 06:45] LABS: BASOPHILS % 0.2 % (0.0-2.0); EOSINOPHILS # 0.5 10^3/ul (0.0-0.5); HEMATOCRIT 32.3 % (37.0-47.0); HEMOGLOBIN 10.9 g/dl (12.0-16.0); LYMPHOCYTES # 2.3 10^3/ul (0.8-2.9); LYMPHOCYTES % 28.9 % (15.0-51.0); MEAN CORPUSCULAR HEMOGLOBIN 30.3 pg (29.0-33.0); MEAN CORPUSCULAR HGB CONC 33.7 g/dl (32.0-37.0); MEAN CORPUSCULAR VOLUME 89.7 fl (82.0-101.0); MEAN PLATELET VOLUME 9.6 fl (7.4-10.4); MONOCYTE # 0.6 10^3/ul (0.3-0.9); MONOCYTES % 7.8 % (0.0-11.0); NEUTROPHIL # 4.6 10^3/ul (1.6-7.5); NEUTROPHILS % 56.9 % (39.0-77.0); PLATELET COUNT 221 10^3/UL (140-415); RED CELL DISTRIBUTION WIDTH 11.9 % (11.5-14.5); WHITE BLOOD COUNT 8.1 10^3/ul (4.8-10.8)
[2017-04-16] MEDS: ACYCLOVIR 500 MG in DEXTROSE 5% 100 ML IVPB SCH (07:00)
[2017-04-16 07:03] LABS: CALCIUM 8.9 mg/dl (8.4-10.2); CREATININE 0.48 mg/dl (0.44-1.00); MAGNESIUM 2.1 mg/dl (1.7-2.5); PHOSPHORUS 4.7 mg/dl (2.5-4.9)
[2017-04-16 07:33] VITALS: BP 101/56; RESP 18
[2017-04-16] MEDS: ONDANSETRON 4 MG INJ IV PRN (10:19)
[2017-04-16] MEDS: morphine 2 MG INJ IV PRN (10:44)
--- NOTE | 2017-04-16 14:56 | PN ---
Date/Time of Note Date/Time of Note DATE: 04/16/17 TIME: 14:55 Assessment/Plan VTE Prophylaxis VTE Prophylaxis Intervention: LMWH Lines/Catheters IV Catheter Type (from Nrs): Saline Lock Assessment/Plan Chief Complaint/Hosp Course 21 yo female with aseptic meningitis - Fevers resolved - Continue supportive care - NSAIDs, antiemetics PRN - Discharge when feelign better and cultures finalized negative - Appreciate ID assistance Problems: Subjective 24 Hr Interval Summary Free Text/Dictation Nausea this AM wtih emesis, still w headache Exam/Review of Systems Vital Signs Vitals Vital Signs Date Time Temp Pulse Resp B/P Pulse Ox O2 Delivery O2 Flow Rate FiO2 04/16/17 07:33 98.3 72 18 101/56 97 04/14/17 17:01 Room Air Intake and Output 04/15/17 04/15/17 04/16/17 15:00 23:00 07:00 Intake Total 100 ml 2230 ml 880 ml Balance 100 ml 2230 ml 880 ml Exam Constitutional: alert, oriented, well developed Psych: nl mood/affect, no complaints Head: atraumatic, normocephalic Eyes: EOMI, PERRL, nl conjunctiva, nl lids, nl sclera ENMT: nl external ears & nose, nl lips & teeth, nl nasal mucosa & septum Neck: non-tender, supple Respiratory: clear to auscultation, normal air movement Cardiovascular: nl pulses, regular rate and rhythm Gastrointestinal: nl liver, spleen, non-tender, soft Musculoskeletal: nl extremities to inspection, nl gait and stance Extremities: normal pulses Neurological: RIP AND GROOVE MACHINE OPERATOR II-XII intact, nl mental status, nl speech, nl strength Skin: nl turgor, No rash or lesions Lymph: nl lymph nodes Results Result Diagram: 04/16/17 0604/16/17 06 Results 24 hrs Laboratory Tests Test 04/16/17 06:01 White Blood Count 8.1 # Red Blood Count 3.60 L Hemoglobin 10.9 L Hematocrit 32.3 L Mean Corpuscular Volume 89.7 Mean Corpuscular Hemoglobin 30.3 Mean Corpuscular Hemoglobin Concent 33.7 Red Cell Distribution Width 11.9 Platelet Count 221 Mean Platelet Volume 9.6 Neutrophils % 56.9 Lymphocytes % 28.9 Monocytes % 7.8 Eosinophils % 6.0 Basophils % 0.2 Nucleated Red Blood Cells % 0.0 Neutrophils # 4.6 Lymphocytes # 2.3 Monocytes # 0.6 Eosinophils # 0.5 Basophils # 0.0 Nucleated Red Blood Cells # 0.0 Sodium Level 142 Potassium Level 4.0 Chloride Level 104 Carbon Dioxide Level 28 Anion Gap 14 Blood Urea Nitrogen 7 Creatinine 0.48 Glucose Level 89 Calcium Level 8.9 Phosphorus Level 4.7 Magnesium Level 2.1 Medications Medications Current Medications Ondansetron HCl (Zofran Inj) 4 mg Q6H PRN IV NAUSEA AND/OR VOMITING Last administered on 04/16/17 10:19; Admin Dose 4 MG; Start 04/14/17 at 04:00 Morphine Sulfate (morphine) 2 mg Q4H PRN IV SEVERE PAIN LEVEL 7-10 Last administered on 04/16/17 10:44; Admin Dose 2 MG; Start 04/14/17 at 04:00 Ketorolac Tromethamine (Toradol) 15 mg Q6H PRN IV PAIN; Start 04/14/17 at 10:30 ; Stop 04/17/17 at 10:29 Acetaminophen (Tylenol Tab) 650 mg Q4H PRN PO PAIN LEVEL 1-3 OR FEVER Last administered on 04/15/17 02:42; Admin Dose 650 MG; Start 04/14/17 at 11:00 HAFSA PAUL MD Apr 16, 2017 14:56
[2017-04-16 15:37] VITALS: BP 101/58; RESP 20
[2017-04-16 19:32] VITALS: BP 107/62; RESP 16
--- NOTE | 2017-04-16 19:45 | PN ---
DATE: 04/16/2017 SUBJECTIVE: The patient is awake. Complaining of headache. She also has on and off nausea and had an episode of emesis. She is afebrile. LABORATORY: WBC today 8.1, platelets 221. BUN 7, creatinine 0.48. MICROBIOLOGY: Blood and urine culture negative. Cerebrospinal fluid culture negative. Gram-stain negative. ANTIMICROBIALS: The patient is on vanco and Rocephin. PHYSICAL EXAMINATION: GENERAL: This is well-developed, young, woman who is alert, in no distress. HEENT: Head atraumatic, normocephalic. Sclerae anicteric. Buccal mucosa pink. NECK: Supple. CHEST: Rise symmetrical. Breath sounds clear. HEART: S1, S2. ABDOMEN: Soft. Bowel sounds present. ASSESSMENT: 1. Febrile illness. 2. Aseptic meningitis. 3. Severe headache secondary to that. PLAN: The patient remains stable. All cultures being negative, we are going to discontinue antibio tics. Continue pain management and supportive care. Dictated By: WILI TENA BURNER MACHINE OPERATOR for MURALI BAEZ MD NI/NTS Conf#: [id number] DID#: [id number] CC: SUKHDEV BARAJAS MD;*EndCC*
[2017-04-16] MEDS ORDERED: METOCLOPRAMIDE 10 MG INJ IV PRN (23:00)
--- NOTE | 2017-04-17 00:59 | RADRPT ---
PROCEDURE: XR Chest. CLINICAL INDICATION: vomiting TECHNIQUE: Single frontal view of the chest was obtained COMPARISON: None FINDINGS: The heart and mediastinum are within normal limits. The lungs are clear. There is no pleural effusion or pneumothorax. The osseous structures are unremarkable para IMPRESSION: 1. No acute cardiopulmonary disease. RPTAT:AAJJ Physician Veronika Date Time Electronically viewed and signed by Timi Tejeda Physician on 04/17/2017 00:59 QL/
--- NOTE | 2017-04-17 01:03 | RADRPT ---
PROCEDURE: XR Abdomen. CLINICAL INDICATION: 21 years of age, female. Vomiting TECHNIQUE: Supine AP view of the abdomen. COMPARISON: None available. FINDINGS: Medical devices: None. The bowel gas pattern is normal. Surgical clips in the right lower quadrant are likely from append ectomy. No extraluminal gas collections are identified. No abnormal abdominal calcifications. No acute bony abnormality. Additional comment: None. IMPRESSION: 1. Nonobstructive bowel gas pattern. 2. Evaluation for free intraperitoneal air is limited on a supine film. If there is an acute abdom en and concern for free air, recommend further evaluation with a decubitus view or upright chest x-r ay. RPTAT: HCTS Physician Kayla Date Time Electronically viewed and signed by Noemí Anaya Physician on 04/17/2017 01:02 CS/
[2017-04-17 02:04] VITALS: BP 95/53; RESP 18
[2017-04-17 08:04] VITALS: BP 112/55; RESP 18
[2017-04-17] MEDS ORDERED: INFLUENZA VIRUS VACCINE 0.5 ML SYG IM* ONE (12:00)
--- NOTE | 2017-04-17 12:48 | PDOCDIS ---
Discharge Instructions DIAGNOSIS Discharge Diagnosis Aseptic meningitis CONDITION Patient Condition: Good HOME CARE INSTRUCTIONS: Diet Instructions: RegularSpecial Diet: regular HAFSA PAUL MD Apr 17, 2017 12:48
--- NOTE | 2017-04-17 12:49 | DS ---
Date/Time of Note Date/Time of Note DATE: 04/17/17 TIME: 12:48 Discharge Summary Admission/Discharge Info Admit Date/Time Apr 14, 2017 at 02:15 Discharge Date/Time Discharge Diagnosis Aseptic meningitis Patient Condition: Good Hospital Course Patient underwent head imaging, unremarkable. Intiatially treated with antibiotics. LP was performed which showed no evidence of bacterial meningitis. Abx were stopped. Continued on supportive care alone. Her headaches and nausea resolved and she was discharged to home. Home Meds No Active Prescriptions or Reported Meds Primary Care Provider Not On Staff Doctor HAFSA PAUL MD Apr 17, 2017 12:49
[2017-04-17 14:05] VITALS: BP 106/57; RESP 18
--- NOTE | 2017-04-17 15:30 | CONS ---
Date/Time of Note Date/Time of Note DATE: 04/17/17 TIME: 15:27 Assessment/Plan Assessment/Plan Chief Complaint/Hosp Course SUBJECTIVE: The patient is awake. Feels better, looks comfortable, no fevers MICROBIOLOGY: Blood and urine culture negative. Cerebrospinal fluid culture negative. Gram-stain negative. ANTIMICROBIALS: None PHYSICAL EXAMINATION: GENERAL: This is well-developed, young, woman who is alert, in no distress. HEENT: Head atraumatic, normocephalic. Sclerae anicteric. Buccal mucosa pink. NECK: Supple. CHEST: Rise symmetrical. Breath sounds clear. HEART: S1, S2. ABDOMEN: Soft. Bowel sounds present. ASSESSMENT: 1. Febrile illness. 2. Aseptic meningitis. 3. Resolving headaches. PLAN: The patient remains stable. Pending discharge planning Problems: Consultation Date/Type/Reason Admit Date/Time Apr 14, 2017 at 02:15 Initial Consult Date Type of Consultation: ID Exam/Review of Systems Vital Signs Vitals Vital Signs Date Time Temp Pulse Resp B/P Pulse Ox O2 Delivery O2 Flow Rate FiO2 04/17/17 14:05 98.8 62 18 106/57 98 04/14/17 17:01 Room Air Intake and Output 04/16/17 04/16/17 04/17/17 15:00 23:00 07:00 Intake Total 350 ml 690 ml 285 ml Output Total 1200 ml Balance 350 ml -510 ml 285 ml Results Result Diagram: 04/16/17 0601 04/16/17 0601 WILI TENA NP Apr 17, 2017 15:30
== END 2017-04-17 14:30 | disposition home or self-care (01) | DRG 99 ==
LOC: FTE 18:25 → PP2 04-14 02:15
PROVIDERS: ADMIT Internal Medicine; ATTEND Internal Medicine
PROC: 009U3ZX Drainage of Spinal Canal, Percutaneous Approach, Diagnostic (ICD-10-PCS; principal; 2017-04-14)
DX: G03.0 Nonpyogenic meningitis (principal); E86.0 Dehydration; E87.6 Hypokalemia
CPT/HCPCS: 36415; 70450; 71010; 74000; 80048; 80053; 80202; 81001; 81003; 82945; 83605; 83735; 84100; 84157; 84484; 84703; 85025; 85610; 85730; 86694; 86703; 86788; 86789; 87040; 87070; 87086; 87400; 87880; 89051; 90686; 96361; 96374; 96375; J0133; J2270; J2405; J3370; J7030; J7050